=== PATIENT | female | born 1950 | race African-American/Black ===

== ENCOUNTER 2017-05-25 17:18 | Emergency (ER) | payer OTHER ==
[~2017-05-25] VITALS: Ht 167.6 cm; Wt 65.0 kg
[2017-05-25] MEDS ORDERED: MORPHINE SULFATE 10 MG/ML CPJ IM ONE (18:00)
[2017-05-25] MEDS ORDERED: KETAMINE HCL 50 MG/ML 10ML IV ONE (19:45)
[2017-05-25] MEDS ORDERED: PROPOFOL 200MG/20ML VIAL IV ONE (19:45)
[2017-05-25] MEDS ORDERED: SODIUM CHLORIDE 0.9% 1,000 ML IV ONE (19:45)
[2017-05-25] MEDS ORDERED: MORPHINE SULFATE 4 MG/ML CPJ (NOT FOR IM USE) IV ONE ×2 (21:15→23:00)
[2017-05-25 23:14] VITALS: BP 139/62
== END 2017-05-25 23:37 | disposition short-term general hospital (02) ==
LOC: ER 17:22
DX: S93.04XA Dislocation of right ankle joint, initial encounter (principal); S82.401A Unspecified fracture of shaft of right fibula, initial encounter for closed fracture; S82.201A Unspecified fracture of shaft of right tibia, initial encounter for closed fracture; E78.00 Pure hypercholesterolemia, unspecified; I10 Essential (primary) hypertension; W01.0XXA Fall on same level from slipping, tripping and stumbling without subsequent striking against object, initial encounter; Y93.89 Activity, other specified; Y92.89 Other specified places as the place of occurrence of the external cause; Y99.8 Other external cause status
CPT/HCPCS: 27840; 73610; 96361; 96372; 96374; 96376; 99152; 99285; J2270; J3490; J7030; Z7610; J2704